=== PATIENT | female | born 1955 | race Caucasian/White ===

== ENCOUNTER → 2017-05-18 15:47 | Outpatient (CLI) | payer OTHER, SELFPAY ==
--- NOTE | 2017-05-18 15:50 | HPBI_ITS ---
MAMMOGRAPHY - BILATERAL SCREENING REASON FOR EXAM: Female, 62 years old. Routine annual screening examination. PERTINENT HISTORY: Personal history of breast cancer. Grandmother with breast cancer. Prior left lumpectomy with radiation treatment. TECHNIQUE: Digital bilateral breast tavon (3D mammographic acquisition) in the CC and MLO projections. 2-D mediolateral oblique (MLO) and craniocaudad (CC) views of both breasts were obtained. CAD: Full Field Digital Mammography with Computer Added Detection was performed. COMPARISON: Comparison is made with prior study dated February 17, 2016 and August 15, 2014. FINDINGS: Breast Composition: The breasts are heterogeneously dense, which may obscure small masses. There are no dominant masses or suspicious calcifications. Surgical clips are seen in the upper lateral portion of the left breast in keeping with her prior lumpectomy. Focal architectural distortion at the lumpectomy site. This is unchanged. No other significant abnormalities are identified. There has been no significant change since the prior study. HPBI/SCREENING MAMM (CAD), BILAT IMPRESSION: Stable bilateral screening mammogram. Yearly follow-up mammogram recommended. (A) ASSESSMENT CATEGORY: BIRADS Category 2: Benign. A letter regarding these results will be sent to the patient by the facility within 30 days. Approximately 10% of breast cancers are not detected by mammography. A normal mammogram should not delay biopsy of a clinically suspicious abnormality. [id number] Electronically Signed: Dada Novak MD at 8:24 EST Tel [phone], Service support ,
== END ==
PROVIDERS: Family Provider Internal Medicine; PCP Internal Medicine; Visit Provider Internal Medicine
DX: Z12.31 Encounter for screening mammogram for malignant neoplasm of breast (principal); Z85.3 Personal history of malignant neoplasm of breast; Z80.3 Family history of malignant neoplasm of breast
CPT/HCPCS: 77063; 77067

== ENCOUNTER → 2019-12-28 13:18 | Outpatient (CLI) | payer MEDICARE, SELFPAY ==
--- NOTE | 2019-12-28 13:23 | BI_ITS ---
MAMMOGRAPHY - BILATERAL SCREENING REASON FOR EXAM: Female, 64 years old. Routine annual screening examination. PERTINENT HISTORY: BILAT SCREENING - PERSONAL HX @ AGE 46 WITH LT LUMPECTOMY WITH RADIATION AND TAMOXIFEN - FAM HX OF MAT GRANDMOTHER @ AGE 58 Tamp; MAT GREAT GRANDMOTHER @ AGE 58''S TECHNIQUE: Digital bilateral breast shara (3D mammographic acquisition) in the CC and MLO projections. 2-D mediolateral oblique (MLO) and craniocaudad (CC) views of both breasts were obtained. CAD: Full Field Digital Mammography with Computer Added Detection was performed. COMPARISON: 05/18/2017 and 02/17/2016. FINDINGS: Breast Composition: The breasts are heterogeneously dense, which may obscure small masses. There are no dominant masses or suspicious calcifications. No other significant abnormalities are identified. BI/SCREEN MAMM (CAD) W/SHARA BILAT IMPRESSION: Stable bilateral screening mammogram. Yearly follow-up mammogram recommended. (A) ASSESSMENT CATEGORY: BIRADS Category 2: Benign. A letter regarding these results will be sent to the patient by the facility within 30 days. Approximately 10% of breast cancers are not detected by mammography. A normal mammogram should not delay biopsy of a clinically suspicious abnormality. [id number] Electronically Signed: Yamilex Altamirano, at 16:40 EDT Tel , Service support ,
--- NOTE | 2019-12-28 13:28 | BD_ITS ---
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 COMPARISON: None. FINDINGS: Lumbar Spine (L1-L4): g/cm2 (0.879) / T-score (-2.5) / Z-score (-0.9) Findings are suggestive of osteopenia with a high fracture risk. Left Femur Total: g/cm2 (0.692) / T-score (-2.5) / Z-score (-1.2) Left Femoral Neck: g/cm2 (0.700) / T-score (-2.4) / Z-score (-0.9) Right Femur Total: g/cm2 (0.688) / T-score (-2.5) / Z-score (-1.3) Right Femoral Neck: g/cm2 (0.732) / T-score (-2.2) / Z-score (-0.7) BD/Dexa Bone Density Study IMPRESSION: The patient is considered osteopenic as outlined below according to World [employer] Organization (WHO) criteria with a high fracture risk. Reference Information: The T-score is the number of standard deviations above or below the standard which is normal for young adults at their peak bone mineral density. The World Health Organization (WHO) interprets the T-scores as follows: Above -1 Normal bone density Between -1 and -2.5 Osteopenia Equal to / or below -2.5 Osteoporosis As a practical clinical guideline, osteopenia may be graded as follows: Mild -1 through -1.5 Moderate -1.6 through -2.0 Severe -2.1 through -2.4 The Z-score is the number of standard deviations above or below age-matched controls. A Z-score of less than -1.5 would be considered abnormal. References: 1. NIH Osteoporosis and Related Bone Diseases www osteo.org 2. International Society for Clinical Densitometry www iscd.org 3. National Osteoporosis Foundation www nof.org Electronically Signed: Dada Novak, at 13:43 EDT , Service support ,
== END ==
PROVIDERS: PCP Internal Medicine; Referring Provider Internal Medicine; Visit Provider Internal Medicine
DX: Z12.31 Encounter for screening mammogram for malignant neoplasm of breast (principal); Z78.0 Asymptomatic menopausal state
CPT/HCPCS: 77063; 77067; 77080

== ENCOUNTER → 2021-03-05 07:13 | Outpatient (CLI) | payer MEDICARE, SELFPAY ==
--- NOTE | 2021-03-05 07:16 | BI_ITS ---
MAMMOGRAPHY - BILATERAL SCREENING REASON FOR EXAM: Female, 65 years old. Routine annual screening examination. PERTINENT HISTORY: Personal history of breast cancer. Prior left lumpectomy with radiation treatment. Grandmother with breast cancer. TECHNIQUE: Digital bilateral breast shara (3D mammographic acquisition) in the CC and MLO projections. 2-D mediolateral oblique (MLO) and craniocaudad (CC) views of both breasts were obtained. CAD: Full Field Digital Mammography with Computer Added Detection was performed. COMPARISON: Comparison is made with prior study dated 12/28/2019 and 05/18/2007. FINDINGS: Breast Composition: The breasts are heterogeneously dense, which may obscure small masses. There are no dominant masses or suspicious calcifications. Once again, the patient is status post lumpectomy in the upper deep central portion of the left breast with resultant postsurgical changes and deformity of the breast. This is unchanged. Stable small benign-appearing bilateral axillary lymph nodes. No other significant abnormalities are identified. There has been no significant change since the prior study. BI/SCRN MAMM (CAD)W/SHARA BILAT IMPRESSION: Stable bilateral screening mammogram. Yearly follow-up mammogram recommended. (A) ASSESSMENT CATEGORY: BIRADS Category 2: Benign. A letter regarding these results will be sent to the patient by the facility within 30 days. Approximately 10% of breast cancers are not detected by mammography. A normal mammogram should not delay biopsy of a clinically suspicious abnormality. [id number] Electronically Signed: Dada Novak MD at 8:54 EST , Service support ,
== END ==
PROVIDERS: PCP Internal Medicine; Referring Provider Internal Medicine; Visit Provider Internal Medicine
DX: Z12.31 Encounter for screening mammogram for malignant neoplasm of breast (principal); Z85.3 Personal history of malignant neoplasm of breast; Z80.3 Family history of malignant neoplasm of breast
CPT/HCPCS: 77063; 77067

== ENCOUNTER → 2022-03-25 | Outpatient (CLI) | payer MEDICARE, SELFPAY ==
--- NOTE | 2022-03-25 08:12 | BI_ITS ---
MAMMOGRAPHY - BILATERAL SCREENING REASON FOR EXAM: Female, 67 years old. Routine annual screening examination. PERTINENT HISTORY: Personal history of breast cancer. Prior left lumpectomy with radiation. Grandmother with breast cancer. TECHNIQUE: Digital bilateral breast shara (3D mammographic acquisition) in the CC and MLO projections. 2-D mediolateral oblique (MLO) and craniocaudad (CC) views of both breasts were obtained. CAD: Full Field Digital Mammography with Computer Added Detection was performed. COMPARISON: Comparison is made with prior study dated 03/05/2021 and 12/28/2019. FINDINGS: Breast Composition: The breasts are heterogeneously dense, which may obscure small masses. There are no dominant masses or suspicious calcifications. Once again, the patient is status post lumpectomy in the deep upper lateral aspect of the left breast. There is resultant stable breast deformity at the operative site. No other significant abnormalities are identified. There has been no significant change since the prior study. BI/SCRN MAMM (CAD)W/SHARA BILAT IMPRESSION: Stable bilateral screening mammogram. Yearly follow-up mammogram recommended. (A) ASSESSMENT CATEGORY: BIRADS Category 2: Benign. A letter regarding these results will be sent to the patient by the facility within 30 days. Approximately 10% of breast cancers are not detected by mammography. A normal mammogram should not delay biopsy of a clinically suspicious abnormality. [id number] Electronically Signed: Dada Novak MD at 9:21 EST ,
--- NOTE | 2022-03-25 08:19 | BD_ITS ---
STUDY: DUAL ENERGY X-RAY ABSORPTIOMETRY / DXA REASON FOR EXAM: Female, 67 years old. [id number] TECHNIQUE: Bone Mineral Density (BMD) measurements of lumbar spine and bilateral hips were obtained. COMPARISON: Comparison is made with prior study 12/28/2019. FINDINGS: Lumbar Spine (L1-L4): g/cm2 (0.684) / T-score (-3.3) / Z-score (-1.3) Findings are suggestive of osteoporosis with a high fracture risk. Left Femur Total: g/cm2 (0.635) / T-score (-2.5) / Z-score (-1.1) Left Femoral Neck: g/cm2 (0.514) / T-score (-3.0) / Z-score (-1.3) Right Femur Total: g/cm2 (0.607) / T-score (-2.7) / Z-score (-1.3) Right Femoral Neck: g/cm2 (0.558) / T-score (-2.6) / Z-score (-0.9) The T-Scores on the most recent prior examination were: Lumbar Spine (L1-L4): There has been worsening of bone density since the previous examination. Left Femur Total: which represents an improvement of 0.1%. Right Femur Total: which represents a worsening of 3.8%. BD/Dexa Bone Density Study IMPRESSION: The patient is considered osteoporotic as outlined below according to World [employer] Organization (WHO) criteria with a high fracture risk. There has been worsening of bone density since the previous examination. Reference Information: The T-score is the number of standard deviations above or below the standard which is normal for young adults at their peak bone mineral density. The World Health Organization (WHO) interprets the T-scores as follows: Above -1 Normal bone density Between -1 and -2.5 Osteopenia Equal to / or below -2.5 Osteoporosis As a practical clinical guideline, osteopenia may be graded as follows: Mild -1 through -1.5 Moderate -1.6 through -2.0 Severe -2.1 through -2.4 The Z-score is the number of standard deviations above or below age-matched controls. A Z-score of less than -1.5 would be considered abnormal. References: 1. NIH Osteoporosis and Related Bone Diseases www osteo.org 2. International Society for Clinical Densitometry www iscd.org 3. National Osteoporosis Foundation www nof.org Electronically Signed: Dada Novak MD at 9:03 EST ,
== END | disposition home or self-care (01) ==
LOC: OPBI 08:09
PROVIDERS: PCP Internal Medicine; Referring Provider Clinical Nurse Specialist; Visit Provider Clinical Nurse Specialist
DX: Z12.31 Encounter for screening mammogram for malignant neoplasm of breast (principal); Z78.0 Asymptomatic menopausal state
CPT/HCPCS: 77063; 77067; 77080

== ENCOUNTER → 2023-03-26 | Outpatient (CLI) | payer MEDICARE, SELFPAY ==
--- NOTE | 2023-03-26 09:02 | BI_ITS ---
MAMMOGRAPHY - BILATERAL SCREENING REASON FOR EXAM: Female, 68 years old. Routine annual screening examination. PERTINENT HISTORY: Personal history of breast cancer. Prior left lumpectomy with radiation. TECHNIQUE: Digital bilateral breast shara (3D mammographic acquisition) in the CC and MLO projections. 2-D mediolateral oblique (MLO) and craniocaudad (CC) views of both breasts were obtained. CAD: Full Field Digital Mammography with Computer Added Detection was performed. COMPARISON: Comparison is made with prior study dated September 22, 2022 and March 05, 2021. FINDINGS: Breast Composition: The breasts are heterogeneously dense, which may obscure small masses. There are no dominant masses or suspicious calcifications. The patient is status post lumpectomy in the axillary region of the left breast with resultant breast deformity and postoperative scarring. No other significant abnormalities are identified. There has been no significant change since the prior study. BI/SCRN MAMM (CAD)W/SHARA BILAT IMPRESSION: Stable bilateral screening mammogram. Yearly follow-up mammogram recommended. (A) ASSESSMENT CATEGORY: BIRADS Category 2: Benign. A letter regarding these results will be sent to the patient by the facility within 30 days. Approximately 10% of breast cancers are not detected by mammography. A normal mammogram should not delay biopsy of a clinically suspicious abnormality. [id number] Electronically Signed: Dada Novak MD at 15:09 EST ,
== END | disposition home or self-care (01) ==
LOC: OPBI 09:00
PROVIDERS: PCP Internal Medicine; Referring Provider Internal Medicine; Visit Provider Internal Medicine
DX: Z12.31 Encounter for screening mammogram for malignant neoplasm of breast (principal); Z85.3 Personal history of malignant neoplasm of breast
CPT/HCPCS: 77063; 77067

== ENCOUNTER 2023-07-17 08:42 | Emergency (ER) | payer MEDICARE, OTHER, SELFPAY ==
[2023-07-17 08:43] VITALS: BP 124/77; PULSE 60; RESP 16; TEMP 36.2; O2SAT 100; BMI 25.0
--- NOTE | 2023-07-17 09:17 | EDS_ITS ---
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 Yesterday she saw her doctor and had some x-rays that she reports were negative according to her doctor. They were not done at this hospital. She is has been taking her Celebrex and took an ibuprofen in addition to this but she is feeling a little short of breath and in a lot of pain. The pain radiates toward her sternum and toward her spine all along the same rib, all of the pain is right side. PFSH [facility] Medical History (Updated 07/17/23 @ 09:[address] Kavin Alonso MD) Hypothyroid Osteopenia Home Medications alendronate 70 mg tablet 70 mg PO QWEEK 07/17/23 [History Last Taken Unknown] celecoxib 200 mg capsule 200 mg PO DAILY 07/17/23 [History Last Taken Unknown] levothyroxine 75 mcg tablet 75 mcg PO DAILY 07/17/23 [History Last Taken Unknown] oxycodone-acetaminophen 5 mg-325 mg tablet (Percocet) 1 tab PO Q6H PRN pain 5 days #20 tabs 07/17/23 [Rx Last Taken Unknown] Allergy/AdvReac Type Severity Reaction Status Date / Time No Known Allergies Allergy Verified 07/17/23 08:43 Social History Smoking Status: Never smoker ROS ROS ED Cardiovascular Cardiovascular: Reports as per HPI and chest pain Respiratory/Chest Respiratory/Chest: Reports dyspnea Gastrointestinal Gastrointestinal: Denies abdominal pain Musculoskeletal Musculoskeletal: Reports back pain; Denies neck pain Neurologic Neurologic: Denies headache(s), paresthesias or weakness EXAM Physical Exam Const Vital Signs: 07/17/23 08:43 Temperature 97.2 F L Temperature Source Temporal Pulse Rate 60 Respiratory Rate 16 Blood Pressure 124/77 H Blood Pressure Mean 92 Pulse Ox 100 Oxygen Delivery Method Room Air Positive well nourished and well developed General Appearance ED: well developed and NAD HEENT Reports moist mucous membranes normocephalic and atraumatic Eyes PERRL and EOMs intact bilaterally Neck supple and no JVD Neck Narrative: FROM Chest Wall Chest Narrative: Point tender without crepitance or subcutaneous emphysema or deformity in the ri ght lateral rib cage mid axillary line approximately rib #5 maybe 6. Although pain radiates around she does not have any other areas of tenderness. Resp clear to auscultation bilaterally Resp Narrative: Occasional splinting with deep inspiration. Equal breath sounds bilaterally. Trachea midline. Cardio regular rate, regular rhythm and no murmurs Rate: Negative for tachycardic GI normal to inspection, nondistended, normoactive bowel sounds and non-tender Neuro oriented x3, CN's II-XII intact bilaterally, no sensory deficits noted and gait normal Motor Exam: strength 5/5 throughout Psych mental status grossly normal Skin no rashes or lesions noted and no wounds MDM MDM MDM Narrative Medical decision making narrative: I obtained an x-ray of the chest in order to rule out pneumothorax, but also added on rib views to get different views since I am not able to see the x-rays she had as an outpatient here. Three-view x-ray series PA chest and right ribs on my interpretation do show what appears to be an acute minimally displaced rib fracture in the area where she has tenderness and pain. No pneumothorax. Patient reassured given a prescription for analgesics with instructions on how to use these and to do incentive spirometer. She drove herself for not giving her something here but given her prescription. Discharge Plan Triage Chief Complaint: Chest Other ED Provider: Kavin Alonso Dx/Rx/DC Orders Clinical Impression: Closed fracture of rib of right side Instructions: ED Rib Fracture Prescriptions: New oxycodone-acetaminophen [Percocet] 5-325 mg tablet 1 tab PO Q6H PRN (Reason: pain) 5 Days Qty: 20 0RF No Action celecoxib 200 mg capsule 200 mg PO DAILY alendronate 70 mg tablet 70 mg PO QWEEK levothyroxine 75 mcg tablet 75 mcg PO DAILY Primary Care Provider: Patience Gil Referrals: Patience Gil MD [Primary Care Provider] - 1-2 Weeks Disposition Disposition: Home, Self Care
--- NOTE | 2023-07-17 09:30 | RAD_ITS ---
EXAM: XR RIGHT RIBS AND AP CHEST, 3 OR MORE VIEWS CLINICAL INDICATION: injury TECHNIQUE: Frontal and oblique views of the right ribs and frontal view of the chest. COMPARISON: No relevant prior studies available. FINDINGS: LUNGS AND PLEURAL SPACES: Surgical clips project over the left lung. Lungs are clear. No pleural effusion or pneumothorax HEART: Normal. Normal heart size. MEDIASTINUM: No mediastinal or hilar mass. BONES/JOINTS: Acute minimally displaced fracture of the anterolateral aspect of the right fourth rib. RAD/Ribs Uni Min 3V w/PA Chest IMPRESSION: Acute minimally displaced fracture of the right fourth rib. No acute cardiopulmonary abnormality. Electronically Signed: Kunal Canas MD at 10:31 EDT ,
[2023-07-17 10:01] VITALS: BP 127/78; PULSE 64; RESP 14; TEMP 36.4; O2SAT 99
== END 2023-07-17 10:16 | disposition home or self-care (01) ==
PROVIDERS: Emergency Provider Emergency Medicine; PCP Internal Medicine; Visit Provider Emergency Medicine
DX: S22.31XA Fracture of one rib, right side, initial encounter for closed fracture (principal); R06.02 Shortness of breath; X58.XXXA Exposure to other specified factors, initial encounter; Y93.89 Activity, other specified; E03.9 Hypothyroidism, unspecified; Z79.890 Hormone replacement therapy; Z79.899 Other long term (current) drug therapy
CPT/HCPCS: 71101; 99282

== ENCOUNTER → 2023-12-11 | Outpatient (CLI) | payer MEDICARE, SELFPAY ==
[2023-12-11 11:10] LABS: Hematocrit 44.3 % (37-47); Hemoglobin 14.3 g/dL (12.0-15.0); Mean Corp Hgb Conc 32.3 g/dL (32-36); Mean Corpuscular Hgb 30.2 pg (27.0-32.0); Mean Corpuscular Volume 93.5 fL (81-99); Mean Platelet Vol. 9.1 fl (6.2-12.0); Platelet Count 345 K/mm3 (150-450); RBC Distribution Width CV 12.4 % (11.6-14.6); RBC Distribution Width SD 42.5 fl (35.1-43.9); Red Blood Count 4.74 M/mm3 (4.2-5.4); White Blood Count 4.4 K/mm3 (4.4-11.0)
[2023-12-11 11:42] LABS: ALB/GLOB Ratio 1.2 RATIO (0.9-2.4); AST(SGOT) 25 U/L (15-37); Alanine Aminotransfer ALT/SGPT 29 U/L (13-56); Albumin, Serum 4.3 g/dL (3.2-5.0); Alkaline Phosphatase 84 U/L (45-117); Anion Gap 5 (5-15); BUN 16 mg/dL (7-18); BUN/Creat Ratio 20.4 RATIO (10-20); Calcium,Total 9.8 mg/dL (8.5-10.1); Chloride 106 mmol/L (98-107); Cholesterol 269 mg/dL (200); Creatinine, Serum 0.78 mg/dL (0.55-1.02); EST Glomerular Filtration Rate 77 mL/min (>60); Est Glom Filt Rate - Afr Amer 93 mL/min (>60); Globulin 3.6 g/dL (2.2-4.2); Glucose 92 mg/dL (74-106); High Density Lipoprotein 108 mg/dL; Protein, Total 7.9 g/dL (6.4-8.2); Sodium Level 139 mmol/L (136-145); T4 Free Direct 1.16 ng/dL (0.76-1.46); Thyroid Stim Hormone (TSH) 0.267 uIU/mL (0.358-3.740); Triglycerides 63 mg/dL; Very Low Density Lipoprotein 13 mg/dL (5-40)
[2023-12-13 08:22] LABS: Vitamin D,25 Hydroxy 36.3 ng/mL
== END | disposition home or self-care (01) ==
LOC: LAB 10:08
PROVIDERS: PCP Internal Medicine; Referring Provider Internal Medicine; Visit Provider Internal Medicine
DX: E03.9 Hypothyroidism, unspecified (principal); E78.00 Pure hypercholesterolemia, unspecified; E55.9 Vitamin D deficiency, unspecified; Z79.899 Other long term (current) drug therapy
CPT/HCPCS: 36415; 80053; 80061; 82306; 84439; 84443; 85027

== ENCOUNTER 2024-01-12 10:00 | Outpatient (RCR) | payer MEDICARE, SELFPAY ==
--- NOTE | 2023-11-19 09:28 | HP.PTREVAL ---
Re-Evaluation Intro: Dr. Chico Guerrero, DO, It has been my pleasure to treat JERONIMO JAVED over the last 1 visits for OA R hip. Please see the progress note below for an update on the physical therapy plan of care! Plan Plan Plan: 2X/ week for 8 weeks for R hip AROM/PROM (Quad and hip flexor stretching), core stability, hip abd and hip ext strength, gait training with HEP HEP: prone HS curls (each leg separate), bridges, L Side bending in standing Balance/Gait/Functional tests Balance/Special Test Scores Lower Extremity Functional Score: 69 Goals Goals Goal 1:: I HEP Goal Time Frame: 8-12 Weeks Goal 2:: Increase R hip strength (at the time of the eval: LE MMT: R hip flex 5.9 and L 7 R knee ext 16.1 and L 16 R knee flex 8,6 and L 6.7 R hip abd in supine R 10.2 and L 12.7 R prone hip ext R 6.7 and L 6.1). Goal Time Frame: 6-8 Weeks Goal 3:: Be able to walk with more upright posture and more equal stance time on the R LE Goal Time Frame: 6-8 Weeks Goal 4:: Be able to increase her sitting tolerance at least with transitions from sitting to standing Goal Time Frame: 6-8 Weeks Anticipated Interventions Anticipated Interventions Patient/Client Instruction: Educate patient on: Condition and Plan of Care For the Purpose of:: To decrease pain, To increase ROM, To improve nutrient delivery to tissue, To increase oxygenation perfusion, To improve muscle performance and motor function, To improve ability to perform ADL's, To increase tolerance to activity/condition/position, To improve performance and independence with ADL's, To decrease level of supervision to perform tasks, To improve ability of physical actions for home/community/work/leisure, To improve gait and locomotor functions, To improve health of tissue, To decrease soft tissue restriction, To increase flexibility/ROM, To improve balance and To improve safety with gait Therapeutic Exercise to Include: Strength training, Endurance training, Balance training, Body mechanics, Postural training, Flexibilty training, Gait and locomotor training, Neuromotor development, Passive ROM, Active ROM, Dynamic Lumbar Stabilization and Scapular Strength/Stabilization For the Purpose of:: To decrease pain, To decrease swelling/inflammation, To increase ROM, To improve nutrient delivery to tissue, To increase oxygenation perfusion, To improve muscle performance and motor function, To improve ability to perform ADL's, To increase tolerance to activity/condition/position, To improve performance and independence with ADL's, To decrease level of supervision to perform tasks, To improve ability of physical actions for home/community/work/leisure, To improve gait and locomotor functions, To improve health of tissue, To decrease soft tissue restriction, To increase flexibility/ROM, To improve endurance, To improve balance and To improve safety with gait Functional Training to Include: Gait training For the Purpose of:: To improve gait and locomotor functions Manual Therapy Techniques to Include: Mobilization and Passive ROM For the Purpose of:: To decrease pain, To increase ROM, To improve nutrient delivery to tissue and To improve muscle performance and motor function Cryotherapy (ice pack, ice massage): Yes Thermo therapy (hot pack): Yes For the Purpose of:: To decrease pain, To decrease swelling/inflammation, To increase ROM and To improve nutrient delivery to tissue Re-Evaluation Ending Re-evaluation ending: Please do not hesitate to contact me at [phone] by phone or if you have questions or concerns regarding this new plan of care! Sincerely, Marina Mauricio, MPT
--- NOTE | 2023-11-24 18:35 | HP.PTEVAL ---
Patient's Visit Information Visit Information Visit Information: JERONIMO JAVED is a 68 year old F referred to Physical Therapy by Dr. Chico Guerrero DO with a diagnosis of OA R hip. Date of Evaluation: 11/19/23 Physical Therapist: BRADY Lopez Visit Plan Frequency: 2x /Week Duration: 2 Months Plan: 2X/ week for 8 weeks for R hip AROM/PROM (Quad and hip flexor stretching), core stability, hip abd and hip ext strength, gait training with HEP HEP: prone HS curls (each leg separate), bridges, L Side bending in standing Subjective Subjective: Pt has a hip spur. She started to have hip pain in December and it is getting worse and worse. She was told that she needs a THR. It catches and sometimes it will take her 5 to 30 min to release and she has severe pain and she can not walk. She can not sit, she has to sit on the side of the chair. She is ok on the stairs if not hurting already. Once she is sitting it locks and can not do anything until it releases. She tried some hip abduction exercises and it cause her more pain. She does not want pool therapy. Pain R hip pain: Pain Intensity (Out of 10): 1 Pain Intensity Range: 9 Comment: when sitting and goes to get up Objective Objective: Gait: Walks with decrease stance time on the R LE and increase SB trunk to the R. Also walks with R forefoot abducted Pt has increase R hip pain with extreme IR/ER of the R hip. She is very guarded with all of her transitions and any hip movement Pt is able to walk on heels and toes LE MMT: R hip flex 5.9 and L 7 R knee ext 16.1 and L 16 R knee flex 8,6 and L 6.7 R hip abd in supine R 10.2 and L 12.7 R prone hip ext R 6.7 and L 6.1 Pt does better with S/L hip abd if she has a pillow between her knees and does not have to adduct too much. Pt have very tight B hip flexor and Quad especially on the R with increase pain. Balance/Special Test Scores Lower Extremity Functional Score: 69 Goals Goal 1:: I HEP Goal Time Frame: 8-12 Weeks Goal 2:: Increase R hip strength (at the time of the eval: LE MMT: R hip flex 5.9 and L 7 R knee ext 16.1 and L 16 R knee flex 8,6 and L 6.7 R hip abd in supine R 10.2 and L 12.7 R prone hip ext R 6.7 and L 6.1). Goal Time Frame: 6-8 Weeks Goal 3:: Be able to walk with more upright posture and more equal stance time on the R LE Goal Time Frame: 6-8 Weeks Goal 4:: Be able to increase her sitting tolerance at least with transitions from sitting to standing Goal Time Frame: 6-8 Weeks Rehabilitation Potential Rehabilitation Potential: Good Anticipated Interventions Patient/Client Instruction: Educate patient on: Condition and Plan of Care For the Purpose of:: To decrease pain, To increase ROM, To improve nutrient delivery to tissue, To increase oxygenation perfusion, To improve muscle performance and motor function, To improve ability to perform ADL's, To increase tolerance to activity/condition/position, To improve performance and independence with ADL's, To decrease level of supervision to perform tasks, To improve ability of physical actions for home/community/work/leisure, To improve gait and locomotor functions, To improve health of tissue, To decrease soft tissue restriction, To increase flexibility/ROM, To improve balance and To improve safety with gait Therapeutic Exercise to Include: Strength training, Endurance training, Balance training, Body mechanics, Postural training, Flexibilty training, Gait and locomotor training, Neuromotor development, Passive ROM, Active ROM, Dynamic Lumbar Stabilization and Scapular Strength/Stabilization For the Purpose of:: To decrease pain, To decrease swelling/inflammation, To increase ROM, To improve nutrient delivery to tissue, To increase oxygenation perfusion, To improve muscle performance and motor function, To improve ability to perform ADL's, To increase tolerance to activity/condition/position, To improve performance and independence with ADL's, To decrease level of supervision to perform tasks, To improve ability of physical actions for home/community/work/leisure, To improve gait and locomotor functions, To improve health of tissue, To decrease soft tissue restriction, To increase flexibility/ROM, To improve endurance, To improve balance and To improve safety with gait Functional Training to Include: Gait training For the Purpose of:: To improve gait and locomotor functions Manual Therapy Techniques to Include: Mobilization and Passive ROM For the Purpose of:: To decrease pain, To increase ROM, To improve nutrient delivery to tissue and To improve muscle performance and motor function Cryotherapy (ice pack, ice massage): Yes Thermo therapy (hot pack): Yes For the Purpose of:: To decrease pain, To decrease swelling/inflammation, To increase ROM and To improve nutrient delivery to tissue Text: Thank you for the opportunity to evaluate your patient. For Medicare and Medicare HMO plans, please review the plan of care and approve it. It will need to be FAXED BACK to us at [phone] for Medicare purposes. For Medicare only, by signing this I certify the plan of care. Please let me know if there are questions or concerns regarding this plan of care. Physician Signature: Date:
--- NOTE | 2023-12-13 14:49 | HP.PTREVAL_ITS ---
Re-Evaluation Intro: Dr. Chico Guerrero, DO, It has been my pleasure to treat JERONIMO JAVED over the last 8 visits for OA R hip. Please see the progress note below for an update on the physical therapy plan of care! Subjective Subjective: She felt no different after the manual therapy. She has no had to use the walker in the past month and getting out of the bed a little easier and not hurting as long. She has to watch her posture. She is willing to try more strengthening in the hopes that the pain will come down with strength. She still is having pain getting into the bed. She knows that she needs a new hip but she has too much going on right now. Objective Objective/Function: Pt struggled to get on all 4's. Pt verbally in pain with transitions today. Plan Plan Plan: 2X/ week for 8 weeks for R hip AROM/PROM (Quad and hip flexor stretching), core stability, hip abd and hip ext strength, gait training with Balance/Gait/Functional tests Balance/Special Test Scores Lower Extremity Functional Score: 63 Goals Goals Goal 1:: I HEP Goal Time Frame: 8-12 Weeks Goal 2:: Increase R hip strength (at the time of the eval: LE MMT: R hip flex 5.9 and L 7 R knee ext 16.1 and L 16 R knee flex 8,6 and L 6.7 R hip abd in supine R 10.2 and L 12.7 R prone hip ext R 6.7 and L 6.1). Goal Time Frame: 6-8 Weeks Goal 3:: Be able to walk with more upright posture and more equal stance time on the R LE Goal Time Frame: 6-8 Weeks Goal Progress: Progressing Goal 4:: Be able to increase her sitting tolerance at least with transitions from sitting to standing Goal Time Frame: 6-8 Weeks Goal Progress: Progressing Anticipated Interventions Anticipated Interventions Patient/Client Instruction: Educate patient on: Condition and Plan of Care For the Purpose of:: To decrease pain, To increase ROM, To improve nutrient delivery to tissue, To increase oxygenation perfusion, To improve muscle performance and motor function, To improve ability to perform ADL's, To increase tolerance to activity/condition/position, To improve performance and independence with ADL's, To decrease level of supervision to perform tasks, To improve ability of physical actions for home/community/work/leisure, To improve gait and locomotor functions, To improve health of tissue, To decrease soft tissue restriction, To increase flexibility/ROM, To improve balance and To improve safety with gait Therapeutic Exercise to Include: Strength training, Endurance training, Balance training, Body mechanics, Postural training, Flexibilty training, Gait and locomotor training, Neuromotor development, Passive ROM, Active ROM, Dynamic Lumbar Stabilization and Scapular Strength/Stabilization For the Purpose of:: To decrease pain, To decrease swelling/inflammation, To increase ROM, To improve nutrient delivery to tissue, To increase oxygenation perfusion, To improve muscle performance and motor function, To improve ability to perform ADL's, To increase tolerance to activity/condition/position, To improve performance and independence with ADL's, To decrease level of supervision to perform tasks, To improve ability of physical actions for home/community/work/leisure, To improve gait and locomotor functions, To improve health of tissue, To decrease soft tissue restriction, To increase flexibility/ROM, To improve endurance, To improve balance and To improve safety with gait Functional Training to Include: Gait training For the Purpose of:: To improve gait and locomotor functions Manual Therapy Techniques to Include: Mobilization and Passive ROM For the Purpose of:: To decrease pain, To increase ROM, To improve nutrient delivery to tissue and To improve muscle performance and motor function Cryotherapy (ice pack, ice massage): Yes Thermo therapy (hot pack): Yes For the Purpose of:: To decrease pain, To decrease swelling/inflammation, To increase ROM and To improve nutrient delivery to tissue Re-Evaluation Ending Re-evaluation ending: Please do not hesitate to contact me at [phone] by phone or Fax: if you have questions or concerns regarding this new plan of care! Sincerely, Marina Mauricio, BRADY
--- NOTE | 2024-01-12 10:21 | HP.PTDCSUM ---
Discharge Summary D/C summary: It has been my pleasure to treat JERONIMO JAVED referred by Dr. Chico Guerrero DO, with the diagnosis of OA R hip for a total of 12 visit(s). Discharge Date: 01/12/24 Please see the following information for a summary of their discharge status. Subjective Subjective: Pt reports that she is about the same. She feels that her balance is better do to increase awareness and if she does the heel and toe she is more balanced. She talked to pain management and they were thinking other drugs or TENS unit. The pain is the worse when she climbs into the bed or out of bed and she abducts the hip. Once it is aggrevated it stays aggrevated. Pain R hip pain: Pain Intensity (Out of 10): 3 Overall Improvement % Improvement: 10 Objective Objective/Function: Sit to stand transitions and sitting tolerance is a little longer Gait: She is still increase stance time on LE MMT: R hip flex 12.3 and L 11.3 R knee ext 16.1 and L 16 R knee flex 8,6 and L 6.7 R hip abd in supine R 11.7 and L 15.2 R prone hip ext R 9.7 and L 10.9 Goals Goal 1:: I HEP Goal Progress: Goal Met Goal 2:: Increase R hip strength (at the time of the eval: LE MMT: R hip flex 5.9 and L 7 R knee ext 16.1 and L 16 R knee flex 8,6 and L 6.7 R hip abd in supine R 10.2 and L 12.7 R prone hip ext R 6.7 and L 6.1). Goal Progress: Goal Met Goal 3:: Be able to walk with more upright posture and more equal stance time on the R LE Goal Progress: Progressing Goal 4:: Be able to increase her sitting tolerance at least with transitions from sitting to standing Goal Progress: Progressing Plan Plan: DC PT to HEP. Pt does not have time at this time due to her falling and having a hip replacement D/C Information Discharge Comments: DC PT to HEP d/c sentence: If there are questions or concerns regarding this patient's physical therapy, please feel free to call me at [phone]. Thank you for the referral of this patient. Sincerely, Marina Mauricio, MPT Balance/Gait/Functional tests Balance/Special Test Scores Lower Extremity Functional Score: 62 Improvement % Improvement: 10
== END 2024-01-12 19:00 | disposition home or self-care (01) ==
LOC: PT 10:00
PROVIDERS: PCP Internal Medicine; Referring Provider Orthopaedic Surgery; Visit Provider Orthopaedic Surgery
DX: M16.11 Unilateral primary osteoarthritis, right hip (principal)
CPT/HCPCS: 97110; 97162; 97530

== ENCOUNTER → 2024-03-28 | Outpatient (CLI) | payer OTHER, SELFPAY ==
--- NOTE | 2024-03-28 08:29 | BI_ITS ---
MAMMOGRAPHY - BILATERAL SCREENING REASON FOR EXAM: Female, 69 years old. Routine annual screening examination. PERTINENT HISTORY: Personal history of breast cancer. Prior left lumpectomy with radiation. TECHNIQUE: Digital bilateral breast shara (3D mammographic acquisition) in the CC and MLO projections. 2-D mediolateral oblique (MLO) and craniocaudad (CC) views of both breasts were obtained. CAD: Full Field Digital Mammography with Computer Added Detection was performed. COMPARISON: Comparison is made with prior study dated March 26, 2023 and March 25, 2022. FINDINGS: Breast Composition: The breasts are heterogeneously dense, which may obscure small masses. There are no dominant masses or suspicious calcifications. The patient is status post lumpectomy in the deep upper axillary portion of the left breast with resultant postoperative scarring and deformity. This is unchanged. No other significant abnormalities are identified. There has been no significant change since the prior study. BI/SCRN MAMM (CAD)W/SHARA BILAT IMPRESSION: Stable bilateral screening mammogram. Yearly follow-up mammogram recommended. (A) ASSESSMENT CATEGORY: BIRADS Category 2: Benign. A letter regarding these results will be sent to the patient by the facility within 30 days. Approximately 10% of breast cancers are not detected by mammography. A normal mammogram should not delay biopsy of a clinically suspicious abnormality. [id number] Electronically Signed: aDda Novak MD at 11:07 EST ,
--- NOTE | 2024-03-28 08:48 | BD_ITS ---
STUDY: DUAL ENERGY X-RAY ABSORPTIOMETRY / DXA REASON FOR EXAM: Female, 69 years old. 627.8Menopausal postmenopausal BONE DENSITY REASON FOR EXAM TECHNIQUE: Bone Mineral Density (BMD) measurements of lumbar spine and bilateral hips were obtained. COMPARISON: Comparison is made with prior study dated March 25, 2022. FINDINGS: Lumbar Spine (L1-L4): g/cm2 (0.746) / T-score (-2.7) / Z-score (-0.6) Findings are suggestive of osteoporosis with a high fracture risk. Left Femur Total: g/cm2 (0.632) / T-score (-2.5) / Z-score (-1.0) Left Femoral Neck: g/cm2 (0.537) / T-score (-2.8) / Z-score (-1.0) Right Femur Total: g/cm2 (0.666) / T-score (-2.3) / Z-score (-0.7) Right Femoral Neck: g/cm2 (0.662) / T-score (-1.7) / Z-score (0.2) The T-Scores on the most recent prior examination were: Lumbar Spine (L1-L4): There has been improvement of bone density since the previous examination. Left Femur Total: which represents a worsening of 0.5%. Right Femur Total: which represents an improvement of 9.7%. BD/Dexa Bone Density Study IMPRESSION: The patient is considered osteoporotic as outlined below according to World [place] Organization (WHO) criteria with a high fracture risk. There has been improvement of bone density since the previous examination. Reference Information: The T-score is the number of standard deviations above or below the standard which is normal for young adults at their peak bone mineral density. The World Health Organization (WHO) interprets the T-scores as follows: Above -1 Normal bone density Between -1 and -2.5 Osteopenia Equal to / or below -2.5 Osteoporosis As a practical clinical guideline, osteopenia may be graded as follows: Mild -1 through -1.5 Moderate -1.6 through -2.0 Severe -2.1 through -2.4 The Z-score is the number of standard deviations above or below age-matched controls. A Z-score of less than -1.5 would be considered abnormal. References: 1. NIH Osteoporosis and Related Bone Diseases www osteo.org 2. International Society for Clinical Densitometry www iscd.org 3. National Osteoporosis Foundation www nof.org Electronically Signed: Dada Novak MD at 12:05 EST ,
== END | disposition home or self-care (01) ==
LOC: OPBI 08:26
PROVIDERS: PCP Internal Medicine; Referring Provider Internal Medicine; Visit Provider Internal Medicine
DX: Z12.31 Encounter for screening mammogram for malignant neoplasm of breast (principal); Z13.820 Encounter for screening for osteoporosis; Z78.0 Asymptomatic menopausal state
CPT/HCPCS: 77063; 77067; 77080